=== PATIENT | female | born 1965 | race Caucasian/White ===

== ENCOUNTER 2024-12-15 13:26 | Inpatient (IN) ==
--- NOTE | 2024-12-15 13:49 | Emergency Department Note ---
History of Present Illness General Chief complaint: Swelling/Edema to Extremity Stated complaint: POSSIBLE BLOOD CLOT LT LEG Time Seen by Provider: 12/15/24 13:40 History of Present Illness Maximum Pain Intensity: 3 This is a 59-year-old female that presents to the emergency department via private vehicle with complaints of "left leg pain x 2 weeks". The patient notes gradual pain and swelling that is been worsening in the left lower extremity. This morning and she noted that the left leg became red and swollen more so than the past few days. She also notes some shortness of breath particular worse with exertion. No chest pain. No history of DVT. The patient denies any history of bleeding disorders or clotting disorders. Current pain 3/10 in the left leg. Home Medications Medication Instructions Recorded Confirmed Type acetaminophen 500 mg tablet 500 mg PO Q6H PRN Pain 09/17/23 12/15/24 History (Tylenol Extra Strength) amlodipine 5 mg tablet 5 mg PO HS 12/15/24 12/15/24 History losartan 50 mg tablet 50 mg PO QAM 12/15/24 12/15/24 History Allergies Allergy/AdvReac Type Severity Reaction Status Date / Time naproxen [From Aleve] AdvReac Intermediate "HEART Verified 12/15/24 15:54 RACES, POUNDS" Past Med/Surg History Problem List (Updated 12/15/24 @ 17:47 by Laurie Antonio MD) Morbid obesity with BMI of 40.0-44.9, adult Hepatosplenomegaly Pulmonary nodule Acute pain of left lower extremity (Acute) Acute dyspnea (Acute) Pulmonary embolism (Acute) DVT (deep venous thrombosis) (Acute) Persistent cough for 3 weeks or longer Toenail fungus Hypertension Hyperlipidemia Surgical History H/O tubal ligation Family History Grandmother Breast cancer Son Diabetes Mother Hypertension Myocardial infarction Sister Hypertension Brother Hypertension Father Hypertension Myocardial infarction Denies family history of Ovarian cancer Prostate cancer Colorectal cancer Social History Smoking Status: Former smoker Tobacco Type: Cigarettes Age Started Using Tobacco: 17; Age Quit Using Tobacco: 29; packs per day: 1.5; Second Hand Exposure: No; Do You Dip or Chew Tobacco: No; Hx Alcohol Use: Yes Alcohol Intake Frequency: Monthly or Less Hx Substance Use: No Preferred Language: Montenegrin Communication Ability: Effective Mining 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 Required: No marital status: / Current Living Situation: Alone Current Living Situation Comment: lives with a dog current occupational status: employed 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 How many Children do You have: 4 Feels Safe at Home: Yes Childhood Exposure to Second-Hand Smoke: Yes Diet: regular caffeine: Yes Dental Care, Regularly: Yes Physical Activity Frequency: 1-2 Times per Week Physical Activity Frequency Comment: walking Seatbelt Use: always Sunscreen Use: Yes Review of Systems A total of 10 systems reviewed and were otherwise negative Physical Exam Vital Signs Vital Signs - 24 hr 12/15/24 13:39 12/15/24 14:05 12/15/24 14:39 Temperature 36.3 C L Temperature Source Temporal Artery Scan Pulse Rate 118 H 117 H Pulse Rate [Apical] 145 H Pulse Rhythm Regular Pulse Rhythm [Apical] Pulse Strength Normal Pulse Strength [Apical] Respiratory Rate 18 20 30 H Respiratory Effort / Characteristics Non-Labored Spontaneous Respiratory Depth Normal Respiratory Pattern Regular Blood Pressure 184/102 H Blood Pressure [Right Arm] 157/106 H Blood Pressure Mean 129 Blood Pressure Mean [Right Arm] 123 Blood Pressure Position Sitting Blood Pressure Position [Right Arm] Pulse Oximetry 90 90 81 L Oxygen Delivery Method Room Air Room Air Room Air Oxygen Flow Rate Sepsis Recent Fever Within 48 Hours No Sepsis New/Unexplained Change in Mental Status N/A Sepsis Action Taken by Nursing No Action Required 12/15/24 14:40 12/15/24 15:59 12/15/24 16:14 Temperature Temperature Source Pulse Rate 130 H Pulse Rate [Apical] 125 H 130 H Pulse Rhythm Pulse Rhythm [Apical] Regular Pulse Strength Pulse Strength [Apical] Normal Respiratory Rate 21 26 H Respiratory Effort / Characteristics Non-Labored Spontaneous Labored Respiratory Depth Normal Normal Respiratory Pattern Regular Blood Pressure Blood Pressure [Right Arm] 152/96 H Blood Pressure Mean Blood Pressure Mean [Right Arm] 114 Blood Pressure Position Blood Pressure Position [Right Arm] Lying Pulse Oximetry 94 96 Oxygen Delivery Method Nasal Cannula Nasal Cannula Oxygen Flow Rate 2 2 Sepsis Recent Fever Within 48 Hours Sepsis New/Unexplained Change in Mental Status Sepsis Action Taken by Nursing VITAL SIGNS - Vital signs and nursing notes were reviewed. Hypertensive, tachycardic, otherwise stable and afebrile. GENERAL -59-year-old female appearing her stated age who is in no acute distress. Communicates well with provider and answers questions appropriately. SKIN - Without rashes. No meningeal or petechial rash. HEAD - NC/AT. EYES - PERRL with EOMI bilaterally. Sclera anicteric. Palpebral conjunctiva pink and moist with no injection noted. EARS - No deformities of external structures noted on gross examination bilaterally. NOSE - Midline and without cyanosis. No epistaxis or purulent drainage noted. MOUTH/OROPHARYNX - Without perioral cyanosis. NECK - Neck with FROM. No nuchal rigidity. LUNGS - Chest wall symmetric without accessory muscle use, intercostals retractions, or central cyanosis. Normal vesicular breath sounds CTA B/L. No wheezes, rales, or rhonchi appreciated. CARDIAC -tachycardic without murmur. ABDOMEN - Abdominal contour normal without pulsations or visible masses. BS normoactive all four quadrants. No tenderness, palpable masses, hepatosplenomegaly, or ascites noted. EXTREMITIES - No clubbing or peripheral cyanosis. +5/5 strength noted in UE/LE bilaterally. The left leg is circumferentially edematous with mild erythema and increased warmth to the left calf region. Dorsalis pedis pulses within normal limits bilaterally. NEUROLOGIC - Cranial nerves II through XII grossly intact. PSYCH -alert, oriented and pleasant on examination Course Administered Medications Heparin Sodium/Dextrose (Heparin 72037 Unit/500 Ml D5w) 25,000 units in 500 mls @ 30 mls/hr IV .[id number] [facility]; Protocol Stop: 01/14/25 14:59 Last Admin: 12/15/24 15:09 Dose: 1,500 units/hr, 30 mls/hr Documented By: RAKESH Co-signed By: LOVE Discontinued Medications Heparin Sodium (Porcine) (Heparin Sod (Porcine) 1000 Unit/Ml) 7,000 units IV NOW ONE Stop: 12/15/24 15:16 Last Admin: 12/15/24 15:10 Dose: 7,000 units Documented By: RAKESH Co-signed By: LOVE Heparin Sodium/Dextrose (Heparin Iv Adult Wt-Based Standard W/ Initial Bolus Protocol) 1 each IV NOW STA; Protocol Stop: 12/15/24 14:45 Last Admin: 12/15/24 15:12 Dose: 1 each Documented By: RAKESH Ioversol (Optiray 320 125ml) 118 ml IV ONCE ONE Stop: 12/15/24 15:01 Last Admin: 12/15/24 15:02 Dose: 118 ml Documented By: GERI Critical Care Time I have personally spent about 40 minutes of critical care time in the direct management of this patient. This includes bedside care, interpretation of diagnostic studies, and testing, discussion with consultants, patient, and family members, and other required patient management activities. This 40 minutes is in excess of all separately billable procedures. Medical Decision Making Laboratory Data 12/15/24 14:00 12/15/24 14:00 Lab Results 12/15/24 12/15/24 12/15/24 Range/Units 14:00 14:37 16:58 WBC 8.10 (4.8-10.8) K/ul RBC 4.66 (4.20-5.40) M/uL Hgb 14.1 (12.0-16.0) g/dl Hct 41.3 (37.0-47.0) % MCV 88.6 (80.0-100.0) fL MCH 30.3 (25.0-34.0) pg MCHC 34.1 (32.0-36.0) g/dL RDW Std Deviation 41.4 (36.4-46.3) fL RDW Coeff of Percy 12.8 (11.5-14.5) % Plt Count 155 (130-400) K/uL MPV 9.7 (9.4-12.4) fL Immature Gran % (Auto) 0.2 % Neut % (Auto) 31.8 % Lymph % (Auto) 56.0 % Hemphill % (Auto) 10.4 % Eos % (Auto) 1.0 % Baso % (Auto) 0.6 % Neut # (Auto) 2.57 (1.40-6.50) K/uL Lymph # (Auto) 4.54 H (1.20-3.40) K/uL Hemphill # (Auto) 0.84 H (0.11-0.59) K/uL Eos # (Auto) 0.08 (0.00-0.50) K/uL Baso # (Auto) 0.05 (0.00-0.20) K/uL Immature Gran # (Auto) 0.02 (0.01-0.20) K/uL PT 11.2 (9.0-12.0) Seconds INR 1.0 (0.9-1.1) APTT 27 (21-31) Seconds PTT Ratio 1.0 Sodium 139 (136-145) mmol/L Potassium 3.7 (3.5-5.1) mmol/L Chloride 105 (98-107) mmol/L Carbon Dioxide 28 (21-32) mmol/L Anion Gap 6 (3-11) BUN 9 (6-23) mg/dl Creatinine 0.85 (0.6-1.2) mg/dl Est Cr Clr Drug Dosing 96.9 ml/min eGFR 79.86 BUN/Creatinine Ratio 10.6 (10-20) Glucose 111 H (70-99(Fasting)) mg/dl Calcium 9.7 (8.6-10.3) mg/dl Magnesium 1.8 (1.7-2.4) mg/dl Total Bilirubin 0.8 (0.2-1.0) mg/dl AST 20 (13-39) U/L ALT 21 (7-52) U/L Alkaline Phosphatase 71 (34-104) U/L Troponin I High Sens 13.1 (0-14) pg/ml B-Natriuretic Peptide 16 (0-100) pg/ml Total Protein 7.4 (6.0-8.3) gm/dl Albumin 4.3 (3.4-5.0) gm/dl Globulin 3.1 (2.5-4.0) gm/dl Albumin/Globulin Ratio 1.4 (0.9-2) TSH 1.672 (0.300-4.500) uIu/ml Urine Color Yellow Urine Appearance Clear (Clear) Urine pH 7.0 (4.5-7.5) Ur Specific Waldron 1.004 (1.000-1.030) Urine Protein Negative (Negative) Urine Glucose (UA) Negative (Negative) Urine Ketones Negative (Negative) Urine Blood Negative (Negative) Urine Nitrite Negative (Negative) Urine Bilirubin Negative (Negative) Urine Urobilinogen Negative (Negative) Ur Leukocyte Esterase 2+ H (Negative) Urine WBC (Auto) 11-20 H (0-5) /hpf Urine RBC (Auto) 0-2 (0-2) /hpf U Hyaline Cast (Auto) 0-2 (0-2) /lpf U Epithel Cells (Auto) 0-2 (0-2) /hpf Urine Bacteria (Auto) None Seen (None Seen) Imaging Data Radiologist's Impression: Venous Doppler Study 12/15/24 13:48 LEFT LOWER EXTREMITY VENOUS DOPPLER HISTORY: Acute pain and swelling of the left lower leg L leg pain COMPARISON STUDY: None. FINDINGS: Extensive occlusive thrombus extends from the mid superficial femoral vein through the popliteal vein into the posterior tibial and peroneal veins. The common femoral and anterior tibial veins appears patent. IMPRESSION: Extensive occlusive deep venous thrombi. ACT 112: Negative or not required by law. Electronically signed by: Marlon Payne M.D. 12/15/2024 2:44 PM Abdomen/Pelvis CT 12/15/24 14:[address] WITH IV CONTRAST CT DOSE: 2503.08 mGy.cm HISTORY: Acute shortness of breath with tachycardia dyspnea, tachycardia, L leg pain/edema TECHNIQUE: Multiaxial CT images of the abdomen and pelvis were performed following the IV administration of 118 cc of Optiray, A dose lowering technique was utilized adhering to the principles of ALARA. COMPARISON STUDY: CT chest of same day FINDINGS: Extensive bilateral pulmonary emboli. Irregular subpleural 2 cm nodules in the right lung base on image 51 series 7 demonstrates apparent central cavitation. No pneumatosis or pneumoperitoneum. Spleen measures 14.5 cm in length. Liver measures 22 cm. Hepatic steatosis without evidence of cirrhosis. Patency of the hepatic and portal veins. Unremarkable left kidney. Areas of cortical scarring and parenchymal thickening noted within the right kidney. No hydronephrosis. Unremarkable uterus and urinary bladder. Aorta and IVC are within normal limits. No lymphadenopathy. No bowel obstruction or bowel wall thickening. No ascites or mesenteric inflammation. Mild colonic diverticulosis without acute diverticulitis. Normal appendix. No acute fracture. IMPRESSION: 1. Extensive pulmonary emboli with right basilar pulmonary nodule. Please refer to the same-day CTA of the chest for additional discussion. 2. No acute intra-abdominal or intrapelvic abnormality. 3. Hepatosplenomegaly with hepatic steatosis. 4. Cortical scarring of the right kidney. ACT 112: Negative or not required by law. The above report was generated using voice recognition software. It may contain grammatical, syntax or spelling errors. Electronically signed by: Marlon Payne M.D. 12/15/2024 3:31 PM Chest CTA 12/15/24 14:38 CT ANGIOGRAM OF THE CHEST CLINICAL HISTORY: Pulmonary emboli. COMPARISON STUDY: Chest radiograph November 21, 2024. TECHNIQUE: Following the IV administration of 118 cc of Optiray 320, CT angiogram of the chest was performed from the upper abdomen to the thoracic inlet utilizing the pulmonary embolus protocol. Images are reviewed in the axial, sagittal, and coronal planes. 3-D MIPS images are created and assessed. IV contrast was administered without complication. A dose lowering technique was utilized adhering to the principles of ALARA. FINDINGS: Extensive bilateral pulmonary emboli are present. These include emboli within the distal right and left pulmonary arteries as well as emboli within the lobar and segmental branches of the lungs. There is mild dilatation of the central pulmonary arteries and mild dilatation of the right heart chambers. There is no pericardial effusion. There is no thoracic lymphadenopathy. No pneumothorax or pleural effusion is present. An irregular 2.1 cm subpleural right lower lobe nodule on image 108 of 251 contains several central ranging hypodense foci. Its unclear whether these represent gas or fat. This lesion is indeterminate. Mild groundglass opacities within the lungs are present. Abdomen and pelvis CT will be reported separately. There is hepatic steatosis and mild splenomegaly IMPRESSION: 1. Extensive bilateral pulmonary emboli. Findings equivocal for right heart strain. 2. 2.1 cm subpleural irregular right lower lobe nodule. This is indeterminate and a pulmonary neoplasm cannot be excluded. However, an infectious etiology or pulmonary infarct, likely subacute, are within the differential. This contains central hypodense foci which could represent gas or fat. Therefore, hamartoma is also within the differential. A short-term follow-up chest CT in 3 months is recommended. ACT 112: Positive. There are findings on this exam that require communication between the performing entity and the patient following Patient Test Result Information Act ([place] Act 112) guidelines. Electronically signed by: Vikas Turpin M.D. 12/15/2024 3:30 PM [facility] Narrative Patient was seen and evaluated as above in room D02b. Review was performed of triage nursing notes and vital signs. I did review pertinent previous visits and patient history. After obtaining a thorough history and physical examination the above work up was performed. Patient presents to us today for evaluation of left leg pain now with exertional dyspnea. On my assessment the patient had just ambulated back from the bathroom and was noted to be hypoxic in the low 80s with a heart rate in the 130s. Patient was placed on O2 nasal cannula and heart rate improved as did the oxygen. EKG per my interpretation reveals sinus tachycardia at a rate of 125 bpm. QTc 421. QRS 70. No ST elevation on this rhythm tracing. Options of care were discussed with the patient. IV access with established care labs were drawn. Left lower extremity Doppler study positive for extensive DVT. I will note that arterial pulses intact on exam. Patient sent to CT scan for CTA of the chest plus abdomen/pelvis to further assess clot burden. There is no leukocytosis or concerning anemia. Coags normal. No evidence of kidney or liver failure. Hyperglycemia 111. Troponin is negative. TSH was euthyroid state. Noting the occlusive DVT, IV heparin was ordered by attending noting DVT with high suspicion for PE. I thoroughly reviewed benefit versus risk of anticoagulation with the patient. No contraindications at this time. Patient amenable to proceeding. The patient certainly requires admission to the hospital at this time. CT scan results are as above. There is extensive bilateral PE. Findings were equivical for right heart strain. There is also a 2.1 cm subpleural irregular right lower lobe nodule. There is comment this is indeterminant and pulmonary neoplasm cannot be excluded. Infection versus infarct possible. Hamartoma in the differential as well. Case discussed with the hospitalist service, I spoke with Dr. Suarez. Please refer to further documentation regarding her stay. Heparin felt to be sufficient at this time pending clinical course. Thrombolytics/thrombectomy considered and discussed with Dr. Suarez however noting patient's overall good clinical appearance, nonhypotensive state believe can hold off at the present time. GCS: 15 In the evaluation and treatment of this patient the following differential diagnoses were entertained: GA, PE, DVT, cerulea dolens, compartment syndrome, among others. Impression & Plan DVT (deep venous thrombosis), Pulmonary embolism, Acute dyspnea, Acute pain of left lower extremity Discharge Plan Visit Data Chief Complaint: Swelling/Edema to Extremity Stated Complaint: POSSIBLE BLOOD CLOT LT LEG ED Provider: Sanjeev Davis ED Midlevel Provider: Bayron Almendarez Discharge Problem: DVT (deep venous thrombosis), Pulmonary embolism, Acute dyspnea, Acute pain of left lower extremity Patient Disposition: Admitted As Inpatient Condition: Good Forms Stand Alone Forms: My [facility] Prescriptions Prescriptions: No Action acetaminophen [Tylenol Extra Strength] 500 mg tablet 500 mg PO Q6H PRN (Reason: Pain) losartan 50 mg tablet 50 mg PO QAM amlodipine 5 mg tablet 5 mg PO HS Referrals Referrals: Irina Bourgeois CRNP [Primary Care Provider] -
[2024-12-15 14:19] LABS: Hematocrit (blood only) 41.3 % (37.0-47.0); Hemoglobin 14.1 g/dl (12.0-16.0); Mean Corpuscular Hemoglobin 30.3 pg (25.0-34.0); Mean Corpuscular Hgb Conc 34.1 g/dL (32.0-36.0); Mean Corpuscular Volume 88.6 fL (80.0-100.0); Mean Platelet Volume 9.7 fL (9.4-12.4); Platelet Count 155 K/uL (130-400); RDW Coefficient of Variation 12.8 % (11.5-14.5); RDW Standard Deviation 41.4 fL (36.4-46.3); Red Blood Count 4.66 M/uL (4.20-5.40)
[2024-12-15 14:36] LABS: Albumin Globulin Ratio 1.4 (0.9-2); Albumin Level 4.3 gm/dl (3.4-5.0); BUN Creatinine Ratio 10.6 (10-20); Bilirubin,Total 0.8 mg/dl (0.2-1.0); Calcium 9.7 mg/dl (8.6-10.3); Creatinine Clr Calc Pharmacy 96.9 ml/min; Globulin 3.1 gm/dl (2.5-4.0); Magnesium 1.8 mg/dl (1.7-2.4); Potassium 3.7 mmol/L (3.5-5.1); Total Protein 7.4 gm/dl (6.0-8.3)
[2024-12-15 14:42] LABS: Troponin I High Sensitivity 13.1 pg/ml (0-14)
--- NOTE | 2024-12-15 14:45 | Ultrasound Report ---
LEFT LOWER EXTREMITY VENOUS DOPPLER HISTORY: Acute pain and swelling of the left lower leg L leg pain COMPARISON STUDY: None. FINDINGS: Extensive occlusive thrombus extends from the mid superficial femoral vein through the popl iteal vein into the posterior tibial and peroneal veins. The common femoral and anterior tibial veins appears patent. IMPRESSION: Extensive occlusive deep venous thrombi. ACT 112: Negative or not required by law. Electronically signed by: Marlon Payne M.D. 12/15/2024 2:44 PM
[2024-12-15 14:46] LABS: Partial Thromboplastin Time 27 Seconds (21-31); Prothrombin Time 11.2 Seconds (9.0-12.0)
[2024-12-15 14:51] LABS: Thyroid Stimulating Hormone 1.672 uIu/ml (0.300-4.500)
[2024-12-15 14:57] LABS: Appearance Urine Clear (Clear); Bacteria Urine Automated None Seen (None Seen); Bilirubin Urine Negative (Negative); Blood Urine Negative (Negative); Cast Urine Automated 0-2 /lpf (0-2); Color Urine Yellow; Epithelial Cell Urine Auto 0-2 /hpf (0-2); Glucose Urine UA Negative (Negative); Ketones Urine Negative (Negative); Leukocyte Esterase Urine 2+ (Negative); Nitrite Urine Negative (Negative); Protein Urine Negative (Negative); RBC Urine Automated 0-2 /hpf (0-2); Specific Gravity Urine 1.004 (1.000-1.030); Urobilinogen Urine Negative (Negative)
[2024-12-15] MEDS ORDERED: HEPARIN SOD (PORCINE) 1000 UNIT/ML IV ONE (14:59)
[2024-12-15] MEDS: OPTIRAY 320 125ml IV ONE (15:02)
[2024-12-15] MEDS: HEPARIN 25000 UNIT/500 ML D5W 25,000 UNITS/500 ML BAG IV SCH (15:09)
[2024-12-15] MEDS: HEPARIN SOD (PORCINE) 1000 UNIT/ML IV ONE (15:10)
[2024-12-15] MEDS: Heparin IV Adult Wt-Based Standard w/ INITIAL Bolus Protocol IV STA (15:12)
[2024-12-15 15:22] LABS: Basophils # (auto) 0.05 K/uL (0.00-0.20); Basophils % (auto) 0.6 %; Eosinophils # (auto) 0.08 K/uL (0.00-0.50); Immature Granulocytes # (auto) 0.02 K/uL (0.01-0.20); Immature Granulocytes % (auto) 0.2 %; Lymphocytes # (auto) 4.54 K/uL (1.20-3.40); Monocytes # (auto) 0.84 K/uL (0.11-0.59); Monocytes % (auto) 10.4 %; Neutrophils # (auto) 2.57 K/uL (1.40-6.50); Neutrophils % (auto) 31.8 %
--- NOTE | 2024-12-15 15:32 | CT Scan Report ---
CT ANGIOGRAM OF THE CHEST CLINICAL HISTORY: Pulmonary emboli. COMPARISON STUDY: Chest radiograph November 21, 2024. TECHNIQUE: Following the IV administration of 118 cc of Optiray 320, CT angiogram of the chest was pe rformed from the upper abdomen to the thoracic inlet utilizing the pulmonary embolus protocol. Images are reviewed in the axial, sagittal, and coronal planes. 3-D MIPS images are created and assessed. I V contrast was administered without complication. A dose lowering technique was utilized adhering to the principles of ALARA. FINDINGS: Extensive bilateral pulmonary emboli are present. These include emboli within the distal ri ght and left pulmonary arteries as well as emboli within the lobar and segmental branches of the lung s. There is mild dilatation of the central pulmonary arteries and mild dilatation of the right heart chambers. There is no pericardial effusion. There is no thoracic lymphadenopathy. No pneumothorax or pleural effusion is present. An irregular 2.1 cm subpleural right lower lobe nodule on image 108 of 2 51 contains several central ranging hypodense foci. Its unclear whether these represent gas or fat. T his lesion is indeterminate. Mild groundglass opacities within the lungs are present. Abdomen and pel vis CT will be reported separately. There is hepatic steatosis and mild splenomegaly IMPRESSION: 1. Extensive bilateral pulmonary emboli. Findings equivocal for right heart strain. 2. 2.1 cm subpleural irregular right lower lobe nodule. This is indeterminate and a pulmonary neoplas m cannot be excluded. However, an infectious etiology or pulmonary infarct, likely subacute, are with in the differential. This contains central hypodense foci which could represent gas or fat. Therefore , hamartoma is also within the differential. A short-term follow-up chest CT in 3 months is recommend ed. ACT 112: Positive. There are findings on this exam that require communication between the performing entity and the patient following Patient Test Result Information Act ([place] Act 112) guidelines. Electronically signed by: Vikas Turpin M.D. 12/15/2024 3:30 PM
--- NOTE | 2024-12-15 15:32 | CT Scan Report ---
ABDOMEN AND PELVIS CT WITH IV CONTRAST CT DOSE: 2503.08 mGy.cm HISTORY: Acute shortness of breath with tachycardia dyspnea, tachycardia, L leg pain/edema TECHNIQUE: Multiaxial CT images of the abdomen and pelvis were performed following the IV administrat ion of 118 cc of Optiray, A dose lowering technique was utilized adhering to the principles of ALARA . COMPARISON STUDY: CT chest of same day FINDINGS: Extensive bilateral pulmonary emboli. Irregular subpleural 2 cm nodules in the right lung b ase on image 51 series 7 demonstrates apparent central cavitation. No pneumatosis or pneumoperitoneum . Spleen measures 14.5 cm in length. Liver measures 22 cm. Hepatic steatosis without evidence of cirr hosis. Patency of the hepatic and portal veins. Unremarkable left kidney. Areas of cortical scarring and parenchymal thickening noted within the righ t kidney. No hydronephrosis. Unremarkable uterus and urinary bladder. Aorta and IVC are within normal limits. No lymphadenopathy. No bowel obstruction or bowel wall thickening. No ascites or mesenteric inflammation. Mild colonic diverticulosis without acute diverticulitis. Normal appendix. No acute fra cture. IMPRESSION: 1. Extensive pulmonary emboli with right basilar pulmonary nodule. Please refer to the same-day CTA o f the chest for additional discussion. 2. No acute intra-abdominal or intrapelvic abnormality. 3. Hepatosplenomegaly with hepatic steatosis. 4. Cortical scarring of the right kidney. ACT 112: Negative or not required by law. The above report was generated using voice recognition software. It may contain grammatical, syntax o r spelling errors. Electronically signed by: Marlon Payne M.D. 12/15/2024 3:31 PM
--- NOTE | 2024-12-15 15:34 | Electrocardiogram Report ---
Test Reason : Blood Pressure : */* mmHG Vent. Rate : 125 BPM Atrial Rate : 125 BPM P-R Int : 176 ms QRS Dur : 70 ms QT Int : 292 ms P-R-T Axes : 58 -1 37 degrees QTcB Int : 421 ms Sinus tachycardia with Premature atrial complexes with Aberrant conduction Left atrial enlargement Old Anterior infarct Abnormal ECG No previous ECGs available Confirmed by Greg Garcia ([id number]) on 12/15/2024 3:33:44 PM Referred By: Confirmed By: Greg Garcia
--- NOTE | 2024-12-15 15:53 | Emergency Department Note ---
ED Visit Note Patient is a 59-year-old female who presents to the ER for possible blood clot in the legs. Patient was seen and evaluated by Bayron Hicks PA-C. I was consulted by the Advanced Practice Provider. I personally made or approved the management plan for the patient. I performed a substantive portion of the visit. This includes the aspects of: MDM. Reviewed the CTA of the chest upon initial completion which per my interpretation showed bilateral PEs. There is no saddle present. This was prior to the results of the read. I did order heparin drip and bolus. Per report patient had no previous brain bleeds, coughing up blood, vomiting blood, urine and blood or recent surgery or trauma. Recommended admission and further management. Please see Bayron's note for further details. CRITICAL CARE: I have personally spent 35 minutes of critical care time in the direct management of this patient. This includes bedside care, interpretation of diagnostic studies, and testing, discussion with consultants, patient, and family members, and other required patient management activities. This 35 minutes is in excess of all separately billable procedures. .
--- NOTE | 2024-12-15 17:50 | History & Physical Report ---
Date of Service December 15, 2024 Assessment & Plan (1) Pulmonary embolism: (2) DVT (deep venous thrombosis): (3) Hypertension: (4) Hyperlipidemia: (5) Pulmonary nodule: (6) Hepatosplenomegaly: (7) Morbid obesity with BMI of 40.0-44.9, adult: Plan 59-year-old woman presenting with extensive bilateral pulmonary embolism and extensive left lower extremity DVT she is hypoxic with presenting O2 sat 81% on room air, however, only requiring 2 L of oxygen to maintain sats. She is tachycardic with her heart rate at rest in the 1 teens although there is some level of chronicity to this. CTA is equivocal for whether there is any evidence of right heart strain, reassuringly her high-sensitivity troponin and BNP are completely normal. Pesi score is 97 which is intermediate. TTE is not yet available. Overall she is in the intermediate-low risk category, PCU admission with anticoagulation is appropriate, hospitalization until we are certain that she is hemodynamically stable with improvement in tachycardia risk factors include being very sedentary for the past 2 months, recent acute illness with pneumonia, morbid obesity. no previous personal or family history of VTE 6 months of anticoagulation would be appropriate given the extent of the clots, consider longer-term treatment with prophylaxis dose anticoagulation bilateral PE and left lower extremity DVT continue heparin drip, admit to PCU for cardiac monitoring and continuous oxygen saturation -- her BMI is 45 so heparin is the safest option at this time however she may be suitable for transition to enoxaparin or DOAC, plan to discuss with clinical pharmacist -- obtain TTE to further assess for any right heart strain and in addition to assess her chronic tachycardia hypertensionhold amlodipine and losartan for now because of the risk of hemodynamic instability hepatosplenomegalynoted on CT, this is likely metabolic liver disease since she has no significant alcohol history morbid obesity with BMI of 45 - she would benefit from GLP1 agonist this can be followed up as an out patient right lower lobe pulmonary nodulethis is probably inflammatory related to her recent lung infection, however, recommend repeat chest CT in 3 months to ensure resolution full code anticoagulated History of Present Illness Chief Complaint: left leg swelling, shortness of breath Primary Care Provider: DAVID Obando Angelika is a 59-year-old woman with hypertension hyperlipidemia and morbid obesity with BMI of 45, she came to the ER because of left leg swelling and redness, left calf pain, shortness of breath. Symptoms started about a week and a half ago with a cramp in her left calf. it got better the next day then recurred. At today later she noticed lightheadedness with standing up and dyspnea on exertion. She was concerned that she may have DVT and PE because her late had problems with VTE. Today the left lower leg was more swollen and reddened so she saw evaluation in the emergency department. She has no personal or family history of VTE. Since the end of September she has been laid up with a respiratory illness. She has had very low activity level basically coming home from work walking the dog and then spending the rest of the day in her recliner chair. This illness was a cough with a lot of mucus, finally end of November she saw her doctor who said there was evidence of bibasilar pneumonia and she was treated with a course of antibiotics and the symptoms resolved. She has not had any lung car or airplane trips. She does have dyspnea with minimal exertion even moving around in bed, she has a history of chronic tachycardia with any exertion, no chest pain or upper back pain. She is not coughing up any sputum or having hemoptysis. No nausea vomiting or diarrhea. she is a former smoker but quit decades ago. No significant alcohol use. Allergies Allergy/AdvReac Type Severity Reaction Status Date / Time naproxen [From Aleve] AdvReac Intermediate "HEART Verified 12/15/24 15:54 RACES, POUNDS" Home Medications Medication Instructions Recorded Confirmed Type acetaminophen 500 mg tablet 500 mg PO Q6H PRN Pain 09/17/23 12/15/24 History (Tylenol Extra Strength) amlodipine 5 mg tablet 5 mg PO HS 12/15/24 12/15/24 History losartan 50 mg tablet 50 mg PO QAM 12/15/24 12/15/24 History Past Med/Surg History Problem List (Updated 12/15/24 @ 17:47 by Laurie Antonio MD) Morbid obesity with BMI of 40.0-44.9, adult Hepatosplenomegaly Pulmonary nodule Acute pain of left lower extremity (Acute) Acute dyspnea (Acute) Pulmonary embolism (Acute) DVT (deep venous thrombosis) (Acute) Persistent cough for 3 weeks or longer Toenail fungus Hypertension Hyperlipidemia Surgical History H/O tubal ligation Family History Grandmother Breast cancer Son Diabetes Mother Hypertension Myocardial infarction Sister Hypertension Brother Hypertension Father Hypertension Myocardial infarction Denies family history of Ovarian cancer Prostate cancer Colorectal cancer Social History Smoking Status: Former smoker Tobacco Type: Cigarettes Age Started Using Tobacco: 17; Age Quit Using Tobacco: 29; packs per day: 1.5; Second Hand Exposure: No; Do You Dip or Chew Tobacco: No; Hx Alcohol Use: Yes Alcohol Intake Frequency: Monthly or Less Hx Substance Use: No Preferred Language: Guamanian Communication Ability: Effective 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: No marital status: / Current Living Situation: Alone Current Living Situation Comment: lives with a dog current occupational status: employed 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 How many Children do You have: 4 Feels Safe at Home: Yes Childhood Exposure to Second-Hand Smoke: Yes Diet: regular caffeine: Yes Dental Care, Regularly: Yes Physical Activity Frequency: 1-2 Times per Week Physical Activity Frequency Comment: walking Seatbelt Use: always Sunscreen Use: Yes Review of Systems Review of Systems: All systems reviewed & are unremarkable except as noted in HPI & below Physical Exam Physical Exam: PHYSICAL EXAMINATION Last 24h vital signs reviewed, see documentation in flowsheet General: very pleasant woman reclining on [facility], no significant distress HEENT: Normocephalic, atraumatic, pupils round and equal, sclerae anicteric, no conjunctival injection, moist mucus membranes Lungs: mildly increased work of breathing. Clear to auscultation bilaterally. No RRW Heart: tachycardic Regular rate and rhythm, no murmurs. No JVD Abdomen: Soft, nontender, nondistended. Bowel sounds present. Extremities: Warm, dry, well-perfused. mild swelling of left lower extremity compared to right lower extremity, nonpitting, mild erythema anterior lower molina, 2+ DP and PT pulses Neuro: Alert and oriented x 4, face symmetric, moves 4 extremities well Psych: Normal affect and behavior Results & Data Results & Data Vital Signs (Past 12 Hours) Vital Signs Temp Pulse Pulse Resp BP BP Pulse Ox 12/15/24 16:14 130 H 26 H 152/96 H 96 12/15/24 15:59 130 H 12/15/24 14:40 125 H 21 94 12/15/24 14:39 145 H 30 H 157/106 H 81 L 12/15/24 14:05 117 H 20 90 12/15/24 13:39 36.3 C L 118 H 18 184/102 H 90 O2 Del Method O2 Flow Rate 12/15/24 16:14 Nasal Cannula 2 12/15/24 15:59 12/15/24 14:40 Nasal Cannula 2 12/15/24 14:39 Room Air 12/15/24 14:05 Room Air 12/15/24 13:39 Room Air Laboratory Results 12/15/24 12/15/24 12/15/24 Range/Units 16:58 14:37 14:00 WBC 8.10 (4.8-10.8) K/ul RBC 4.66 (4.20-5.40) M/uL Hgb 14.1 (12.0-16.0) g/dl Hct 41.3 (37.0-47.0) % MCV 88.6 (80.0-100.0) fL MCH 30.3 (25.0-34.0) pg MCHC 34.1 (32.0-36.0) g/dL RDW Std Deviation 41.4 (36.4-46.3) fL RDW Coeff of Percy 12.8 (11.5-14.5) % Plt Count 155 (130-400) K/uL MPV 9.7 (9.4-12.4) fL Immature Gran % (Auto) 0.2 % Neut % (Auto) 31.8 % Lymph % (Auto) 56.0 % [place] % (Auto) 10.4 % Eos % (Auto) 1.0 % Baso % (Auto) 0.6 % Neut # (Auto) 2.57 (1.40-6.50) K/uL Lymph # (Auto) 4.54 H (1.20-3.40) K/uL [place] # (Auto) 0.84 H (0.11-0.59) K/uL Eos # (Auto) 0.08 (0.00-0.50) K/uL Baso # (Auto) 0.05 (0.00-0.20) K/uL Immature Gran # (Auto) 0.02 (0.01-0.20) K/uL PT 11.2 (9.0-12.0) Seconds INR 1.0 (0.9-1.1) APTT 27 (21-31) Seconds PTT Ratio 1.0 Sodium 139 (136-145) mmol/L Potassium 3.7 (3.5-5.1) mmol/L Chloride 105 (98-107) mmol/L Carbon Dioxide 28 (21-32) mmol/L Anion Gap 6 (3-11) BUN 9 (6-23) mg/dl Creatinine 0.85 (0.6-1.2) mg/dl Est Cr Clr Drug Dosing 96.9 ml/min eGFR 79.86 BUN/Creatinine Ratio 10.6 (10-20) Glucose 111 H (70-99(Fasting)) mg/dl Calcium 9.7 (8.6-10.3) mg/dl Magnesium 1.8 (1.7-2.4) mg/dl Total Bilirubin 0.8 (0.2-1.0) mg/dl AST 20 (13-39) U/L ALT 21 (7-52) U/L Alkaline Phosphatase 71 (34-104) U/L Troponin I High Sens 13.1 (0-14) pg/ml B-Natriuretic Peptide 16 (0-100) pg/ml Total Protein 7.4 (6.0-8.3) gm/dl Albumin 4.3 (3.4-5.0) gm/dl Globulin 3.1 (2.5-4.0) gm/dl Albumin/Globulin Ratio 1.4 (0.9-2) TSH 1.672 (0.300-4.500) uIu/ml Urine Color Yellow Urine Appearance Clear (Clear) Urine pH 7.0 (4.5-7.5) Ur Specific [place] 1.004 (1.000-1.030) Urine Protein Negative (Negative) Urine Glucose (UA) Negative (Negative) Urine Ketones Negative (Negative) Urine Blood Negative (Negative) Urine Nitrite Negative (Negative) Urine Bilirubin Negative (Negative) Urine Urobilinogen Negative (Negative) Ur Leukocyte Esterase 2+ H (Negative) Urine WBC (Auto) 11-20 H (0-5) /hpf Urine RBC (Auto) 0-2 (0-2) /hpf U Hyaline Cast (Auto) 0-2 (0-2) /lpf U Epithel Cells (Auto) 0-2 (0-2) /hpf Urine Bacteria (Auto) None Seen (None Seen) reviewed labs notable for not anemic no leukocytosis good renal function negative high-sensitivity troponin at 13.1, normal BNP of 16, TSH normal at 1.6 Diagnostic Findings Venous Doppler Study 12/15/24 13:48 LEFT LOWER EXTREMITY VENOUS DOPPLER HISTORY: Acute pain and swelling of the left lower leg L leg pain COMPARISON STUDY: None. FINDINGS: Extensive occlusive thrombus extends from the mid superficial femoral vein through the popliteal vein into the posterior tibial and peroneal veins. The common femoral and anterior tibial veins appears patent. IMPRESSION: Extensive occlusive deep venous thrombi. ACT 112: Negative or not required by law. Electronically signed by: Marlon Payne M.D. 12/15/2024 2:44 PM Abdomen/Pelvis CT 12/15/24 14:[address] WITH IV CONTRAST CT DOSE: 2503.08 mGy.cm HISTORY: Acute shortness of breath with tachycardia dyspnea, tachycardia, L leg pain/edema TECHNIQUE: Multiaxial CT images of the abdomen and pelvis were performed following the IV administration of 118 cc of Optiray, A dose lowering technique was utilized adhering to the principles of ALARA. COMPARISON STUDY: CT chest of same day FINDINGS: Extensive bilateral pulmonary emboli. Irregular subpleural 2 cm nodules in the right lung base on image 51 series 7 demonstrates apparent central cavitation. No pneumatosis or pneumoperitoneum. Spleen measures 14.5 cm in length. Liver measures 22 cm. Hepatic steatosis without evidence of cirrhosis. Patency of the hepatic and portal veins. Unremarkable left kidney. Areas of cortical scarring and parenchymal thickening noted within the right kidney. No hydronephrosis. Unremarkable uterus and urinary bladder. Aorta and IVC are within normal limits. No lymphadenopathy. No bowel obstruction or bowel wall thickening. No ascites or mesenteric inflamm ation. Mild colonic diverticulosis without acute diverticulitis. Normal appendix. No acute fracture. IMPRESSION: 1. Extensive pulmonary emboli with right basilar pulmonary nodule. Please refer to the same-day CTA of the chest for additional discussion. 2. No acute intra-abdominal or intrapelvic abnormality. 3. Hepatosplenomegaly with hepatic steatosis. 4. Cortical scarring of the right kidney. ACT 112: Negative or not required by law. The above report was generated using voice recognition software. It may contain grammatical, syntax or spelling errors. Electronically signed by: Marlon Payne M.D. 12/15/2024 3:31 PM Chest CTA 12/15/24 14:38 CT ANGIOGRAM OF THE CHEST CLINICAL HISTORY: Pulmonary emboli. COMPARISON STUDY: Chest radiograph November 21, 2024. TECHNIQUE: Following the IV administration of 118 cc of Optiray 320, CT angiogram of the chest was performed from the upper abdomen to the thoracic inlet utilizing the pulmonary embolus protocol. Images are reviewed in the axial, sagittal, and coronal planes. 3-D MIPS images are created and assessed. IV contrast was administered without complication. A dose lowering technique was utilized adhering to the principles of ALARA. FINDINGS: Extensive bilateral pulmonary emboli are present. These include emboli within the distal right and left pulmonary arteries as well as emboli within the lobar and segmental branches of the lungs. There is mild dilatation of the central pulmonary arteries and mild dilatation of the right heart chambers. There is no pericardial effusion. There is no thoracic lymphadenopathy. No pneumothorax or pleural effusion is present. An irregular 2.1 cm subpleural right lower lobe nodule on image 108 of 251 contains several central ranging hypodense foci. Its unclear whether these represent gas or fat. This lesion is indeterminate. Mild groundglass opacities within the lungs are present. Abdomen and pelvis CT will be reported separately. There is hepatic steatosis and mild splenomegaly IMPRESSION: 1. Extensive bilateral pulmonary emboli. Findings equivocal for right heart strain. 2. 2.1 cm subpleural irregular right lower lobe nodule. This is indeterminate and a pulmonary neoplasm cannot be excluded. However, an infectious etiology or pulmonary infarct, likely subacute, are within the differential. This contains central hypodense foci which could represent gas or fat. Therefore, hamartoma is also within the differential. A short-term follow-up chest CT in 3 months is recommended. ACT 112: Positive. There are findings on this exam that require communication between the performing entity and the patient following Patient Test Result Information Act ([place] Act 112) guidelines. Electronically signed by: Vikas Turpin M.D. 12/15/2024 3:30 PM Code Status & VTE Plan Code Status she states she would like to be full code VTE Prophylaxis Plan VTE Prophylaxis will be ordered: Yes PG Care Time/CCT Total # of Minutes Spent Total Time Spent with Patient: Total time spent is greater than 50% in coordination of care (as documented) at patient's floor/unit and/or counseling patient: Coding Level of Care Code 39354 INT INP/OBS CARE 3/75MIN Diagnoses Pulmonary embolism I26.99 DVT (deep venous thrombosis) I82.409 Primary hypertension I10 Hypertension type: primary hypertension Pure hypercholesterolemia E78.00 Hyperlipidemia type: pure hypercholesterolemia Pulmonary nodule R91.1 Hepatosplenomegaly R16.2 Morbid obesity with BMI of 40.0-44.9, adult E66.01; Z68.41 (3) Hypertension Hypertension type: primary hypertension Qualified Code(s): I10 - Essential (primary) hypertension (4) Hyperlipidemia Hyperlipidemia type: pure hypercholesterolemia Qualified Code(s): E78.00 - Pure hypercholesterolemia, unspecified
[2024-12-15] MEDS ORDERED: ZOLPIDEM TARTRATE 5 MG TAB PO PRN (21:17)
[2024-12-15] MEDS ORDERED: MAGNESIUM HYDROXIDE SUSP 30 ML UDC PO PRN (21:17)
[2024-12-15] MEDS ORDERED: ONDANSETRON INJ 2 MG/ML 2 ML VIAL IV PRN (21:17)
[2024-12-15] MEDS ORDERED: ACETAMINOPHEN 500 MG TAB PO PRN (21:17)
[2024-12-15] MEDS ORDERED: ALUMINUM/MAGNESIUM SUSP 30 ML UDC PO PRN (21:17)
[2024-12-15] MEDS ORDERED: POLYETHYLENE (MIRALAX) 17 GM PACK PO PRN (21:17)
[2024-12-15 21:37] LABS: ANTI-Xa, UFH(UnfractionatedHep 0.52 IU/ml (0.3-0.7)
[2024-12-15] MEDS ORDERED: Nursing to Pharmacy Communication SCH (23:45)
[2024-12-16 03:10] LABS: ANTI-Xa, UFH(UnfractionatedHep 0.47 IU/ml (0.3-0.7)
--- NOTE | 2024-12-16 11:02 | XCELERA ---
[id number] \\[id number]
--- NOTE | 2024-12-16 13:48 | Hospitalist Progress Note ---
Date of Service December 16, 2024 Assessment & Plan (1) Pulmonary embolism: (2) DVT (deep venous thrombosis): (3) Hypertension: (4) Hyperlipidemia: (5) Pulmonary nodule: (6) Hepatosplenomegaly: (7) Morbid obesity with BMI of 40.0-44.9, adult: Plan 59-year-old woman presenting with extensive bilateral pulmonary embolism and extensive left lower extremity DVT intermediate-low risk category risk factors include being very sedentary for the past 2 months, recent acute illness with pneumonia, morbid obesity. no previous personal or family history of VTE 6 months of anticoagulation would be appropriate given the extent of the clots, consider longer-term treatment with prophylaxis dose anticoagulation currently stable on heparin drip tachycardia improved overnight, remains hypoxic on 2 L oxygen. Constitutionally she feels better I reviewed her TTE which shows normal LV size hyperdynamic with the EF greater than 70% no RWMA's moderate concentric LVH the RV is normal no evidence of RV strain no significant valvular disease, mild pulmonary hypertension I reviewed the literature and discussed management with the inpatient pharmacist there is accumulating data that it is effective to use rivaroxaban or apixaban in patients with weights in the 120-140 kg range we will change to rivaroxaban at dinnertime today and stop heparin drip hypertension resume losartan, amlodipine held blood pressure mostly normal since yesterday afternoon. Generally she would benefit from beta-bettina for chronic sinus tachycardia. her TSH was normal only sinus on telemetry echo without explanation for this. hepatosplenomegalynoted on CT, this is likely metabolic liver disease since she has no significant alcohol history morbid obesity with BMI of 45 - she would benefit from GLP1 agonist this can be followed up as an outpatient right lower lobe pulmonary nodulethis is probably inflammatory related to her recent lung infection, however, recommend repeat chest CT in 3 months to ensure resolution I discussed plan of care with her bedside nurse we will liberalize her to activity ad letty. and remove her Miller catheter, continue PCU telemetry for now full code anticoagulated Admission and Anticipated Discharge Date Admission Date: December 15, 2024 Iman Carney Is feeling better today. She has been sitting up for meals and has not been lightheaded or short of breath. No chest pain her heart rate has come down she feels like she is about at her normal heart rate for her which never gets lower than the 90s. Left leg pain has resolved and swelling improved with no further erythema. Physical Exam 2 Physical Exam: PHYSICAL EXAMINATION Last 24h vital signs reviewed, see documentation in flowsheet General: Sitting up in bed awake alert looks good better color HEENT: Normocephalic, atraumatic, pupils round and equal, sclerae anicteric, no conjunctival injection, moist mucus membranes Lungs: slightly increased work of breathing Heart: tachycardic and regular, reviewed telemetry monitors continues to be in sinus tachycardia rate now in 801081 range Abdomen: soft and nondistended Extremities: Warm, dry, well-perfused. left lower extremity swelling has decreased and now appears same as right lower extremity, mild erythema over anterior lower molina has resolved Neuro: Alert and oriented x 4, face symmetric, moves 4 extremities well Psych: Normal affect and behavior Results & Data Results & Data Vital Signs (Past 12 Hours) Vital Signs Temp Pulse Resp BP Pulse Ox O2 Del Method O2 Flow Rate 12/16/24 11:09 36.8 C 112 H 18 150/87 H 93 Nasal Cannula 2.0 12/16/24 08:00 Nasal Cannula 2 12/16/24 07:22 36.9 C 95 H 18 124/79 94 Nasal Cannula 2.0 12/16/24 03:00 36.8 C 97 H 18 125/86 96 Nasal Cannula 2 Laboratory Results 12/15/24 14:00 12/15/24 14:00 PG Care Time/CCT Total # of Minutes Spent Total Time Spent with Patient: Total time spent is greater than 50% in coordination of care (as documented) at patient's floor/unit and/or counseling patient: Coding Level of Care Code 19427 SUB INP/OBS CARE 3/50MIN Diagnoses Pulmonary embolism I26.99 DVT (deep venous thrombosis) I82.409 Primary hypertension I10 Hypertension type: primary hypertension Pure hypercholesterolemia E78.00 Hyperlipidemia type: pure hypercholesterolemia Pulmonary nodule R91.1 Hepatosplenomegaly R16.2 Morbid obesity with BMI of 40.0-44.9, adult E66.01; Z68.41 (3) Hypertension Hypertension type: primary hypertension Qualified Code(s): I10 - Essential (primary) hypertension (4) Hyperlipidemia Hyperlipidemia type: pure hypercholesterolemia Qualified Code(s): E78.00 - Pure hypercholesterolemia, unspecified
[2024-12-16] MEDS: RIVAROXABAN 15 MG TAB PO SCH (20:57)
[2024-12-17 07:03] LABS: Hematocrit (blood only) 38.2 % (37.0-47.0); Hemoglobin 12.6 g/dl (12.0-16.0); Mean Corpuscular Hemoglobin 30.1 pg (25.0-34.0); Mean Corpuscular Volume 91.2 fL (80.0-100.0); Mean Platelet Volume 10.1 fL (9.4-12.4); Platelet Count 155 K/uL (130-400); RDW Coefficient of Variation 12.8 % (11.5-14.5); RDW Standard Deviation 42.2 fL (36.4-46.3); Red Blood Count 4.19 M/uL (4.20-5.40); White Blood Count 5.84 K/ul (4.8-10.8)
[2024-12-17 07:18] VITALS: RESP 18
[2024-12-17 07:33] LABS: BUN Creatinine Ratio 15.9 (10-20); Calcium 8.9 mg/dl (8.6-10.3); Creatinine Clr Calc Pharmacy 99.8 ml/min; Potassium 4.4 mmol/L (3.5-5.1)
[2024-12-17 07:48] LABS: ANTI-Xa, UFH(UnfractionatedHep > 1.50 IU/ml (0.3-0.7)
[2024-12-17] MEDS: LOSARTAN POTASSIUM 50 MG TAB PO SCH (08:32)
[2024-12-17 11:42] VITALS: BP 118/77; TEMP 99; O2SAT 93
[2024-12-17 13:18] VITALS: PULSE 94
--- NOTE | 2024-12-17 15:14 | Discharge Summary ---
Discharge Summary Date of Service December 17, 2024 Principal Dx & Hospital Course #1 = Principal Diagnosis (1) Pulmonary embolism: (2) DVT (deep venous thrombosis): (3) Hypertension: (4) Hyperlipidemia: (5) Pulmonary nodule: (6) Hepatosplenomegaly: (7) Morbid obesity with BMI of 40.0-44.9, adult: Plan 59-year-old woman presenting with extensive bilateral pulmonary embolism and extensive left lower extremity DVT intermediate-low risk category based on PESI, CTA chest unable to determine whether RV strain TTE with normal LV size hyperdynamic with the EF greater than 70% no RWMA's moderate concentric LVH the RV is normal no evidence of RV strain no significant valvular disease, mild pulmonary hypertension risk factors include being very sedentary for the past 2 months, recent acute illness with pneumonia, morbid obesity. no previous personal or family history of VTE 6 months of anticoagulation would be appropriate given the extent of the clots, consider longer-term treatment with prophylaxis dose anticoagulation I reviewed the literature and discussed management with the inpatient pharmacist there is accumulating data that it is effective to use rivaroxaban or apixaban in patients with weights in the 120-140 kg range, there is more data for rivaroxaban stabilized on heparin drip, transitioned to xarelto afternoon of 12/16. feels better and tachycardia improved, hypoxia improved no longer requiring supp O2 Other issues: hypertension resumed losartan, amlodipine held on discharge because of normal BP. Generally she would benefit from beta-bettina for chronic sinus tachycardia. her TSH was normal, only sinus on telemetry, echo without explanation for this. If tachycardia persisting after a few months of anticoagulation consider cardiology referral hepatosplenomegalynoted on CT, this is likely metabolic liver disease since she has no significant alcohol history morbid obesity with BMI of 45, high risk of MICHAEL - she would benefit from GLP1 agonist this can be followed up as an outpatient probable MICHAEL - snoring, HTN, BMI, mild pulmonary HTN on echo - made sleep medicine referral right lower lobe pulmonary nodulethis is probably inflammatory related to her recent lung infection, however, recommend repeat chest CT in 3 months to ensure resolution Notes For Next Care Provider xarelto for PE/DVT - high clot burden but responding well to treatment with anticoagulation. 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 Symptoms started about a week and a half ago with a cramp in her left calf. it got better the next day then recurred. At today later she noticed lightheadedness with standing up and dyspnea on exertion. She was concerned that she may have DVT and PE because her late had problems with VTE. Today the left lower leg was more swollen and reddened so she saw evaluation in the emergency department. She has no personal or family history of VTE. Since the end of September she has been laid up with a respiratory illness. She has had very low activity level basically coming home from work walking the dog and then spending the rest of the day in her recliner chair. This illness was a cough with a lot of mucus, finally end of November she saw her doctor who said there was evidence of bibasilar pneumonia and she was treated with a course of antibiotics and the symptoms resolved. She has not had any lung car or airplane trips. She does have dyspnea with minimal exertion even moving around in bed, she has a history of chronic tachycardia with any exertion, no chest pain or upper back pain. She is not coughing up any sputum or having hemoptysis. No nausea vomiting or diarrhea. she is a former smoker but quit decades ago. No significant alcohol use. Discharge Exam PHYSICAL EXAMINATION Last 24h vital signs reviewed, see documentation in flowsheet General: awake and up in bed, later in street clothes walking in room HEENT: Normocephalic, atraumatic, pupils round and equal, sclerae anicteric, no conjunctival injection, moist mucus membranes Lungs: nonlabored, CTAB Heart: no longer tachycardic at rest, reg no mrg Abdomen: soft and nondistended Extremities: Warm, dry, well-perfused. left lower extremity swelling has decreased and now appears same as right lower extremity with mild edema, L molina erythema resolved Neuro: Alert and oriented x 4, face symmetric, moves 4 extremities well Psych: Normal affect and behavior Discharge Plan Discharge Items Patient Disposition: Home - Self-Care Reason For Visit: DVT/PE Discharge Diagnosis: DVT/PE Condition on Discharge: Good Activity: Resume your previous activity Non-emergency contact: Primary Care Provider Call non-emergency contact if: you have any medication questions and your symptoms worsen Follow-up/Referrals: Irina Bourgeois CRNP [Primary Care Provider] - 12/25/24 10:30 am (Hospital follow up scheduled December 25 at 10:30) Diet: Regular Addtl Attending Provider Instructions: You were diagnosed with DVT (blood clot in your left leg) that traveled up and went to the arteries in your lungs - "PE" or pulmonary embolism You had some mild risk factors to provoke the clot - recent pneumonia and immobility, as well as overweight. We treat this with blood thinners - the best option for you is Xarelto (rivaroxaban). It is more effective and has a lower risk of severe bleeding compared to warfarin. -this starts with a three week "loading dose" - 15 mg twice a day for three weeks then decrease to 20 mg once a day and continue -there are no significant food or drug interactions We discussed the risks and benefits of anticoagulation, including the risks of gastrointestinal bleeding - seek medical attention if you have black/tarry or bloody stool There is also a very small but real risk of intracranial hemorrhage - related to head trauma or bleeding-type stroke, that can be life threatening. Call 911 if you have altered mental status or symptoms of stroke (weakness or numbness of face/arm/leg, trouble speaking or understanding, trouble with walking/balance -you have a lot of clot so its probably best to treat for 6 months. 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 Right now your BP is normal on losartan alone. Hold the amlodipine. Follow up with your doctor - if/when your BP starts going up again you can resume the amlodipine (or a beta-bettina instead) if the fast heart rate isn't resolved after a few months of blood thinner, talk to your doctor about trying B-bettina medication like metoprolol to slow the rate and/or seeing a online advertising director. your heart squeeze and valves are fine on Echo and your thyroid (TSH) is normal. Some people have a high resting heart rate without an identifiable cause. There are a few other issues that came up: Right lower lobe pulmonary nodule on CT chest - probably inflammatory from your recent infection, however, recommend follow up CT in three months to ensure resolution your heart Echo shows signs of elevated blood pressure in your lungs, and you have several risk factors for obstructive sleep apnea - we made referral to sleep medicine your liver has a lot of fat in it which is also causing spleen enlargement. Over time this can lead to cirrhosis and liver failure. Continue avoiding alcohol. Weight loss and increased exercise will help. GLP-1 agonist medications (like ozempic or zepbound/mounjaro) help reduce liver fat and inflammation and can also help sleep apnea if you have it - talk to your primary care doctor about this It was a pleasure taking care of you in the hospital, Laurie Antonio MD Pending Studies at Discharge: No Stand-Alone Forms: [facility], Smoking Cessation Medications and DC Order Prescriptions: New Xarelto 15 mg Tablet 15 mg PO BID Qty: 40 0RF Rx Instructions: take 15 mg twice a day for 20 doses, then decrease to 20 mg once a day and continue Xarelto 20 mg Tablet 20 mg PO QDD Qty: 10 0RF Rx Instructions: take 15 mg twice a day for 20 doses, then decrease to 10 mg once a day and continue Continued acetaminophen [Tylenol Extra Strength] 500 mg tablet 500 mg PO Q6H PRN (Reason: Pain) losartan 50 mg tablet 50 mg PO QAM Held amlodipine 5 mg tablet 5 mg PO HS Hold Instructions: Resume on 01/14/25. hold until you talk to your doctor Discharge Orders: Discharge Order (Routine); Ordered 12/17/24 Ordered By: Laurie Antonio Admission Data Admit Date/Time: 12/15/24 18:31 Attending Provider: Laurie Antonio Admit Provider: Laurie Antonio Primary Care Provider: Irina Bourgeois Other Providers: Sanjeev Suarez Other Interventions: Discharge Summary Assessment (RN) Last Done: 12/17/24 13:17 Hospital Stay Data Consultations 12/15/24 15:35 ED Decision to Admit Stat Diagnostic Imagining Performed 12/15/24 13:48 US venous doppler LE LT Stat 12/15/24 14:38 CT abd pelvis IV con only Stat CT angio chest PE protocol Stat Pending Results Patient Have Any Pending Studies at Discharge: No Discharge Instructions Given to Patient (Per Discharging Provider) You were diagnosed with DVT (blood clot in your left leg) that traveled up and went to the arteries in your lungs - "PE" or pulmonary embolism You had some mild risk factors to provoke the clot - recent pneumonia and immobility, as well as overweight. We treat this with blood thinners - the best option for you is Xarelto (rivaroxaban). It is more effective and has a lower risk of severe bleeding compared to warfarin. -this starts with a three week "loading dose" - 15 mg twice a day for three weeks then decrease to 20 mg once a day and continue -there are no significant food or drug interactions We discussed the risks and benefits of anticoagulation, including the risks of gastrointestinal bleeding - seek medical attention if you have black/tarry or bloody stool There is also a very small but real risk of intracranial hemorrhage - related to head trauma or bleeding-type stroke, that can be life threatening. Call 911 if you have altered mental status or symptoms of stroke (weakness or numbness of face/arm/leg, trouble speaking or understanding, trouble with walking/balance -you have a lot of clot so its probably best to treat for 6 months. 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 Right now your BP is normal on losartan alone. Hold the amlodipine. Follow up with your doctor - if/when your BP starts going up again you can resume the amlodipine (or a beta-bettina instead) if the fast heart rate isn't resolved after a few months of blood thinner, talk to your doctor about trying B-bettina medication like metoprolol to slow the rate and/or seeing a online advertising director. your heart squeeze and valves are fine on Echo and your thyroid (TSH) is normal. Some people have a high resting heart rate without an identifiable cause. There are a few other issues that came up: Right lower lobe pulmonary nodule on CT chest - probably inflammatory from your recent infection, however, recommend follow up CT in three months to ensure resolution your heart Echo shows signs of elevated blood pressure in your lungs, and you have several risk factors for obstructive sleep apnea - we made referral to sleep medicine your liver has a lot of fat in it which is also causing spleen enlargement. Over time this can lead to cirrhosis and liver failure. Continue avoiding alcohol. Weight loss and increased exercise will help. GLP-1 agonist medications (like ozempic or zepbound/mounjaro) help reduce liver fat and inflammation and can also help sleep apnea if you have it - talk to your primary care doctor about this It was a pleasure taking care of you in the hospital, Laurie Antonio MD Total Time Total Time Spent Total Time Spent (In Minutes): I personally spent: 45 minutes today on clinical care activities including: reviewing chart notes and vital signs calling outpatient pharmacy to confirm availability and cost of Xarelto examining and counseling the patient discussion with bedside RN about plan of care writing prescriptions, discharge instructions documentation Coding Level of Care Code 89368 INP/OBS DISCH >30 MIN Diagnoses Pulmonary embolism I26.99 DVT (deep venous thrombosis) I82.409 Primary hypertension I10 Hypertension type: primary hypertension Pure hypercholesterolemia E78.00 Hyperlipidemia type: pure hypercholesterolemia Pulmonary nodule R91.1 Hepatosplenomegaly R16.2 Morbid obesity with BMI of 40.0-44.9, adult E66.01; Z68.41
[2025-01-06] MEDS ORDERED: RIVAROXABAN 20 MG TAB PO SCH (16:30)
[2025-01-07] MEDS ORDERED: RIVAROXABAN 20 MG TAB PO SCH (16:30)
== END 2024-12-17 14:03 | disposition home or self-care (01) | DRG 299 ==
LOC: ED 13:26 → EDINP 18:31 → 2S 21:17